=== PATIENT | male | born 1980 | race African-American/Black ===

== ENCOUNTER 2017-11-12 14:35 | Emergency (ER) | payer OTHER ==
[~2017-11-12] VITALS: Ht 175.3 cm; Wt 92.8 kg
[~2017-11-12 14:35] MED LIST: FLEXERIL10 MG PO; MOTRIN600 MG PO; MOTRIN800 MG PO
[2017-11-12] MEDS ORDERED: PEN-VEE K,VEET500 MG PO (16:21)
[2017-11-12 16:44] VITALS: BP 134/75
== END 2017-11-12 16:45 | disposition home or self-care (01) ==
LOC: EME 14:35
PROC: 0CQ0XZZ Repair Upper Lip, External Approach (ICD-10-PCS; principal; 2017-11-12)
DX: S01.511A Laceration without foreign body of lip, initial encounter (principal); S09.93XA Unspecified injury of face, initial encounter; W01.198A Fall on same level from slipping, tripping and stumbling with subsequent striking against other object, initial encounter; Z87.891 Personal history of nicotine dependence
CPT/HCPCS: 99281; 99283; S0020

== ENCOUNTER 2017-11-19 23:05 | Emergency (ER) | payer OTHER ==
[~2017-11-19] VITALS: Ht 175.3 cm; Wt 94.8 kg
[~2017-11-19 23:05] MED LIST changes: +PEN-VEE K,VEET500 MG PO
[2017-11-19 23:09] VITALS: BP 161/95
== END 2017-11-19 23:46 | disposition home or self-care (01) ==
LOC: EME 23:05
DX: S01.511D Laceration without foreign body of lip, subsequent encounter (principal)
CPT/HCPCS: 99281; 99283